=== PATIENT | female | born 1955 | race Caucasian/White ===

== ENCOUNTER 2018-12-15 10:46 | Day surgery (SDC) | payer BC ==
[2018-12-08 15:41] VITALS: BMI 25.4
[~2018-12-15 10:46] MED LIST: LACTATED RINGERS 1,000 ML IV SCH; LIDOCAINE 1% 20 ML VIAL (10MG/ML) FOR IV START INTRADERMA PRN
[2018-12-15 11:06] VITALS: TEMP 98.7
[2018-12-15] MEDS ORDERED: PROPOFOL 10 MG/ML 20 ML VIAL IV ONE (12:07)
--- NOTE | 2018-12-15 13:03 | P.PCN ---
Date of Procedure: 12/15/18 Description of Procedure: BRIEF HISTORY: 63-year-old female with a past medical history significant for colonic polyps who presents back for screening colonoscopy. Last colonoscopy on 06/21/2015 was significant for polypectomy with pathology positive for tubular adenoma. She denies any family history of colon cancer, change in bowel habits, blood per rectum, constipation or diarrhea. PROCEDURE PERFORMED: Colonoscopy with polypectomy. PREOPERATIVE DIAGNOSIS: Personal history of colon polyps, high risk screening colonoscopy, last colonoscopy 2015. ESTIMATED BLOOD LOSS: Minimal. IV sedation per Anesthesia. PROCEDURE: After informed consent was obtained, the patient, was brought into the endoscopy unit. IV sedation was administered by Anesthesia under continuous monitoring. Digital rectal examination was normal. Initially the Olympus CF-190 flexible video colonoscope was then inserted in the rectum, gradually advanced into the cecum without any difficulty. Careful examination was performed as the scope was gradually being withdrawn. Ileocecal valve and the appendiceal orifice were visualized and appeared normal. Prep was excellent. Mucosa of the cecum, ascending colon, transverse colon, descending colon, sigmoid colon, and rectum appeared normal. One flat diminutive 5 mm polyp noted in the transverse colon and removed with cold forcep polypectomy. 2 diminutive sigmoid colon polyps measuring 2 and 3 mm removed with cold forcep polypectomy. Mild internal hemorrhoids. Retroflexion was performed in the rectum and no lesions were seen. The patient tolerated the procedure well. IMPRESSION: Normal-appearing colon from rectum to cecum. Cold forceps polypectomy of 3 diminutive polyps in the transverse and sigmoid colon. Mild internal hemorrhoids. RECOMMENDATIONS: Findings of this examination were discussed with the patient. Okay to resume d iet. Anticipate repeat colonoscopy in 3-5 years pending pathology from polypectomies.
[2018-12-15 13:24] VITALS: BP 101/64; PULSE 59; RESP 16
== END 2018-12-15 13:43 | disposition home or self-care (01) ==
LOC: ORWHC2ENDO 10:46
PROVIDERS: ATTEND Internal Medicine
DX: Z12.11 Encounter for screening for malignant neoplasm of colon (principal); D12.3 Benign neoplasm of transverse colon; D12.5 Benign neoplasm of sigmoid colon; K64.8 Other hemorrhoids; I10 Essential (primary) hypertension; E78.5 Hyperlipidemia, unspecified; E07.9 Disorder of thyroid, unspecified; Z79.890 Hormone replacement therapy; Z86.010 Personal history of colon polyps; Z79.82 Long term (current) use of aspirin; Z79.899 Other long term (current) drug therapy
CPT/HCPCS: 88305; 45380; J2704

== ENCOUNTER → 2022-09-10 | Outpatient (CLI) | payer MEDICARE ==
--- NOTE | 2022-09-10 14:25 | MR ---
EXAMINATION TYPE: MR hip LT wo con DATE OF EXAM: 09/10/2022 COMPARISON: None. HISTORY: Left hip pain with limited movement for 8 months. Standard multiplanar, multisequence MRI departmental protocol Multiplanar, multisequence images of the pelvis focus on the left hip were acquired without contrast. FINDINGS: Moderate size left greater than right hip joint effusions are present . Moderate axial join t space loss is present bilaterally. The femoral head shapes are maintained bilaterally. Increased si gnal seen at level of the greater trochanters bilaterally is consistent with insertional tendinitis a t this level. There is no suspicious increase T2 signal or edema in the femurs bilaterally. No serpig inous diminished T1 signal to suggest avascular necrosis is present. Some tiny subchondral cystic elda nge throughout the bilateral acetabulum are seen. There is no groin hernia or adenopathy identified. Degenerative labral tearing is present seen best on the sagittal series. No suspicious bowel dilatation. Collapsed bladder. Unremarkable uterus. IMPRESSION: Degenerative changes in left hip as detailed above. Moderate to borderline large size lef t hip joint effusion is greater than opposite right side.
== END | disposition home or self-care (01) ==
LOC: RADMRIMAIN 09:11
PROVIDERS: ATTEND Family Medicine
DX: M16.12 Unilateral primary osteoarthritis, left hip (principal)

== ENCOUNTER 2022-10-03 07:19 | Day surgery (SDC) | payer MEDICARE ==
--- NOTE | 2022-10-01 14:07 | P.PN ---
Progress Note - Text Progress Note Date: 10/01/22 Patient was still taking supplements. Patient advised high risk for bleeding alternatively colonoscopy without polypectomy due to supplements and Mobic. Patient offered to reschedule if needed.
[~2022-10-03 07:19] MED LIST changes: +LIDOCAINE 1% (10MG/ML) FOR IV START INTRADERMA PRN; -LIDOCAINE 1% 20 ML VIAL (10MG/ML) FOR IV START INTRADERMA PRN; +ONDANSETRON 4 MG/2 ML VIAL IVP PRN
--- NOTE | 2022-10-03 07:36 | P.GSHP ---
History of Present Illness H&P Date: 10/03/22 CHIEF COMPLAINT: Colon screen HISTORY OF PRESENT ILLNESS: The patient is a 67-year-old female who presents for colon screen. Lower endoscopy was offered for further evaluation and management. PAST MEDICAL HISTORY: Please see list. PAST SURGICAL HISTORY: Please see list. MEDICATIONS: Please see list. ALLERGIES: Please see list. SOCIAL HISTORY: No illicit drug use FAMILY HISTORY: No reports of Crohn disease or ulcerative colitis. REVIEW OF ORGAN SYSTEMS: CONSTITUTIONAL: No reports of fevers or chills. PHYSICAL EXAM: VITAL SIGNS: Stable GENERAL: Well-developed pleasant in no acute distress. HEENT: No scleral icterus. Extraocular movements grossly intact. Moist buccal mucosa. NECK: Supple without lymphadenopathy. CHEST: Unlabored respirations. Equal bilateral excursions. CARDIOVASCULAR: Regular rate and rhythm. Distal 2+ pulses. ABDOMEN: Soft, nontender, nondistended. MUSCULOSKELETAL: No clubbing, cyanosis, or edema. ASSESSMENT: 1. Colon screen. PLAN: 1. Recommend proceeding with a lower endoscopy Past Medical History Past Medical History: Cancer, Hyperlipidemia, Osteoarthritis (OA), Thyroid Disorder Additional Past Medical History / Comment(s): SKIN CANCER, hx. colon polyps, intermittent constipation, diarrhea, current left hip effusion-lot of pain, seeing ortho. soon History of Any Multi-Drug Resistant Organisms: None Reported Past Surgical History: Breast Surgery, Section Additional Past Surgical History / Comment(s): BILATERAL BREAST AUGMENTATION, LATER BREAST IMPLANTS REMOVED, colonoscopy Past Anesthesia/Blood Transfusion Reactions: Motion Sickness Smoking Status: Former smoker - Past Family History Mother Family Medical History: No Reported History Sister(s) Family Medical History: Deep Vein Thrombosis (DVT) Medications and Allergies Home Medications Medication Instructions Recorded Confirmed Type Aspirin [Adult Low Dose Aspirin EC] 81 mg PO DAILY 06/16/15 09/28/22 History Levothyroxine Sodium [Synthroid] 100 mcg PO DAILY 06/16/15 09/28/22 History Multivitamins, Thera [Multivitamin] 1 tab PO DAILY 06/16/15 09/28/22 History Pravastatin Sodium [Pravachol] 20 mg PO DAILY 06/16/15 09/28/22 History Cholecalciferol (Vitamin D3) 6,000 unit PO DAILY 12/08/18 09/28/22 History [Vitamin D3] Ascorbic Acid [Vitamin C] 500 mg PO DAILY 09/28/22 09/28/22 History L.acidoph,Paracasei, B.lactis 1 each PO DAILY 09/28/22 09/28/22 History [Probiotic] Meloxicam [Mobic] 15 mg PO DAILY 09/28/22 09/28/22 History [place]-3 Fatty Acids/Fish Oil 1 each PO DAILY 09/28/22 09/28/22 History [[place]-3 Fish Oil 1,200 mg Sfgl] Prebiotic 1 tab PO DAILY 09/28/22 History Young Living Enzyme 1 tab PO DAILY 09/28/22 History [facility] Sulfurzyme 1 tab PO DAILY 09/28/22 History Allergies Allergy/AdvReac Type Severity Reaction Status Date / Time No Known Allergies Allergy Verified 10/03/22 07:28
[2022-10-03 07:44] VITALS: RESP 16; TEMP 98.2
[2022-10-03] MEDS ORDERED: PROPOFOL 10 MG/ML 20 ML VIAL IV ONE (07:51)
--- NOTE | 2022-10-03 08:20 | P.PCN ---
Date of Procedure: 10/03/22 Description of Procedure: PREOPERATIVE DIAGNOSIS: Personal history of colon polyps Colonoscopy screening POSTOPERATIVE DIAGNOSIS: Tubular adenoma ascending colon Sigmoid diverticulosis Internal/external hemorrhoids, grade 3 OPERATION: Colonoscopy to the ileocecal valve and appendiceal orifice, cecum Colonoscopy with cold forceps biopsy SURGEON: Phyllis Villegas MD. ANESTHESIA: MAC. INDICATIONS: The patient is an 67-year-old female who presents personal history of colon polyps. She reports taken meloxicam within the past 5 days with understanding the increased risk of bleeding. Last colonoscopy within 5 years. Benefits and risks were described and informed consent was obtained. DESCRIPTION OF PROCEDURE: The patient had undergone Suprep. The patient had been brought into the operating room and laid in the left lateral decubitus position. After adequate intravenous sedation, the rectum was examined with 2% lidocaine jelly. External hemorrhoids were encountered. The rectal tone was within normal limits. No lesions were palpated in the rectal vault. An Olympus colonoscope was advanced until the cecum, ileocecal valve and appendiceal orifice were clearly viewed. The prep was excellent. Sigmoid diverticulosis few was encountered. Highly redundant sigmoid colon requiring abdominal wall pressure.Colonic polyps were found and removed. No evidence of focal colitis was found. Retroflexion of the scope demonstrated grade 3 internal hemorrhoids without active bleeding or infl ammation. The colon was desufflated. The patient had tolerated the procedure well. Withdrawal time was over 6 minutes. FINDINGS: Aronchick preparation quality scale 1 (1-5) Internal hemorrhoids, grade 3 External hemorrhoids, grade 3. No arteriovenous malformations. Sigmoid diverticulosis, few Highly redundant sigmoid colon requiring abdominal wall pressure. Removal of 1 polyp: - Cold forceps biopsy at ascending colon, 4 mm polyp. No focal colitis. RECOMMENDATIONS: Repeat colonoscopy in 3 years, 2025 Plan - Discharge Summary Discharge Rx Participant: No New Discharge Prescriptions: Continue Pravastatin Sodium [Pravachol] 20 mg PO DAILY Multivitamins, Thera [Multivitamin (formulary)] 1 tab PO DAILY Levothyroxine Sodium [Synthroid] 100 mcg PO DAILY Aspirin [Adult Low Dose Aspirin EC] 81 mg PO DAILY Cholecalciferol (Vitamin D3) [Vitamin D3] 6,000 unit PO DAILY Ascorbic Acid [Vitamin C] 500 mg PO DAILY L.acidoph,Paracasei, B.lactis [Probiotic] 1 each PO DAILY Young Living Enzyme 1 tab PO DAILY Prebiotic 1 tab PO DAILY [place]-3 Fatty Acids/Fish Oil [[place]-3 Fish Oil 1,200 mg Sfgl] 1 each PO DAILY Meloxicam [Mobic] 15 mg PO DAILY [facility] Sulfurzyme 1 tab PO DAILY Discharge Medication List Aspirin [Adult Low Dose Aspirin EC] 81 mg PO DAILY 06/16/15 [History] Levothyroxine Sodium [Synthroid] 100 mcg PO DAILY 06/16/15 [History] Multivitamins, Thera [Multivitamin (formulary)] 1 tab PO DAILY 06/16/15 [History] Pravastatin Sodium [Pravachol] 20 mg PO DAILY 06/16/15 [History] Cholecalciferol (Vitamin D3) [Vitamin D3] 6,000 unit PO DAILY 12/08/18 [History] Ascorbic Acid [Vitamin C] 500 mg PO DAILY 09/28/22 [History] L.acidoph,Paracasei, B.lactis [Probiotic] 1 each PO DAILY 09/28/22 [History] Meloxicam [Mobic] 15 mg PO DAILY 09/28/22 [History] [place]-3 Fatty Acids/Fish Oil [[place]-3 Fish Oil 1,200 mg Sfgl] 1 each PO DAILY 09/28/22 [History] Prebiotic 1 tab PO DAILY 09/28/22 [History] [facility] [employer] Enzyme 1 tab PO DAILY 09/28/22 [History] [facility] Sulfurzyme 1 tab PO DAILY 09/28/22 [History] Follow up Appointment(s)/Referral(s): Phyllis Villegas MD [STAFF PHYSICIAN] - 10/30/22 3:30 pm Patient Instructions/Handouts: Colorectal Polyps (GEN), Diverticulosis Diet (GEN) Activity/Diet/Wound Care/Special Instructions: Repeat colonoscopy in 3 years, 2025 Discharge Disposition: HOME SELF-CARE
[2022-10-03 08:33] VITALS: BP 108/68; PULSE 72
== END 2022-10-03 09:06 | disposition home or self-care (01) ==
LOC: ORWHC2ENDO 07:19
PROVIDERS: ATTEND Surgery Plastic and Reconstructive Surgery
DX: Z12.11 Encounter for screening for malignant neoplasm of colon (principal); D12.2 Benign neoplasm of ascending colon; K57.30 Diverticulosis of large intestine without perforation or abscess without bleeding; K64.3 Fourth degree hemorrhoids; K64.8 Other hemorrhoids; Z79.890 Hormone replacement therapy; Z79.82 Long term (current) use of aspirin; M19.90 Unspecified osteoarthritis, unspecified site; E78.5 Hyperlipidemia, unspecified; E07.9 Disorder of thyroid, unspecified; Z85.828 Personal history of other malignant neoplasm of skin; Z87.891 Personal history of nicotine dependence; Z79.899 Other long term (current) drug therapy; Z79.1 Long term (current) use of non-steroidal anti-inflammatories (NSAID)
CPT/HCPCS: 88305; 45380; J2704